=== PATIENT | female | born 1980 | race American Indian/Alaskan Native ===

== ENCOUNTER 2017-03-30 07:12 | Outpatient (CLI) | payer MEDICAID ==
--- NOTE | 2017-03-30 09:58 | Cat Scan Report ---
CT ABDOMEN WITH CONTRAST: HISTORY: Abdominal pain, umbilical pain. COMPARISON: none. TECHNIQUE: Helical CT in 1.25mm intervals following IV contrast. Sagittal and coronal reconstructions. FINDINGS: Lung bases: Normal. Liver: Normal. Biliary system: Normal. Pancreas: Normal. Spleen: Normal. Kidneys/ureters: Normal. Adrenal glands: Normal. Aorta: Normal. Intestines: Normal. Appendix: Not confidently identified. No umbilical hernia is appreciated. IMPRESSION: Unremarkable CT scan of the abdomen with contrast.
== END 2017-03-30 07:13 | disposition home or self-care (01) ==
LOC: CT 07:12
PROVIDERS: ATTEND Obstetrics & Gynecology
DX: R10.33 Periumbilical pain (principal)
CPT/HCPCS: 74160; Q9967

== ENCOUNTER 2021-08-04 05:46 | Observation (INO) | payer MEDICAID, OTHER ==
--- NOTE | 2021-08-01 12:07 | History and Physical Report ---
History of Present Illness Date of examination: 08/01/21 History of present illness: Patient has been reassessed/reevaluated. H&P has been reviewed. No interval changes. This is a 40 years old female who with complains of menorrhagia, dysmenorrhea, abnormal periods, dyspareunia and pelvic pain, but denies abnormal vaginal discharge, vaginal burning/irritation, vaginal itching, breast mass or lumps, depression, anxiety, urinary symptoms, chest pain, palpitations, shortness of breath, leg swelling, back pain, abdominal pain, headaches and bowel problems. The patient notes that she is sexually active and does not use contraception. The patient reports that she has cycles q 28-30 days. The patient's menstrual disorder symptoms began >1 year ago. She complains of heavy bleeding, dysmenorrhea, history of fibroids and cramping, but denies irregular menses, mid-cycle spotting, lack of menses, clotting, history of ovarian cysts, history of thyroid disease, history of PCOS, history of bleeding disorder, lightheadedness and fatigue. Interval between menses is 28 days and 30 days. Menstrual flow lasts 4 days and 7 days. Patient reports that for pain she uses ibuprofen. Patient's work up has included a CT scan and a transvaginal ultrasound which revealed multiple myomas largest ~4cm in diameter. Patient's symptoms when present disrupts her normal daily activities Patient desires definitive treatment ] Vital Signs: Patient Profile: 40 Years Old Female LMP: 07/06/2021 Height: 65 inches Weight: 175 pounds BMI: 29.12 Temp: 97.9 degrees F BP sittin / 70 (left arm) Menstrual History: LMP (date): 07/06/2021 Past History : 2 Term Births: 2 Premature Births: 0 Living Children: 2 Para: 2 Mult. Births: 0 Prev : 0 Aborta: 0 Elect. Ab: 0 Spont. Ab: 0 Ectopics: 0 # 1 Delivery date: Weeks Gestation: 40 Delivery type: vaginal Anesthesia type: epidural [facility] Sex: female weight: 7.31 Comments: none # 2 Delivery date: 02/17/2008 Weeks Gestation: 39 labor: no Delivery type: Anesthesia type: epidural Delivery location: [facility] Sex: Female weight: 7.88 Current Allergies (reviewed today): No known allergies Past Medical History: Hypertension Fibroids Past Surgical History: Left Bunionectomy Bilateral axillary breast tissue removal Family History Summary: Other Family Member - Has Family History of Lung Cancer - Entered On: 05/30/2021 Other Family Member - Has Family History of Hypertension - Entered On: 05/30/2021 Other Family Member - Has Family History of Diabetes - Entered On: 05/30/2021 General Comments - FH: Family History Breast Cancer--first cousin No Family History of Colon Cancer No Family History of Ovarvian Cancer Social History: Patient is Marital Status: Children: 2 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 of genital herpes: no Hx of STD: None Review of Systems General Complains of fatigue. Denies fever, chills, sweats, anorexia, weakness, malaise, weight loss and sleep disorder. Complains of menorrhagia, pelvic pain, painful periods and painful sex. Denies vaginal discharge, incontinence, dysuria, hematuria, urinary frequency, amenorrhea, abnormal vaginal bleeding, genital sores, decreased libido, urinary urgency, hot flashes, vaginal dryness, vaginal itching and vaginal odor. CV Denies chest pains, palpitations, syncope, dyspnea on exertion, orthopnea, PND and peripheral edema. Resp Denies cough, dyspnea at rest, excessive sputum, hemoptysis, wheezing and pleurisy. GI Denies nausea, vomiting, diarrhea, constipation, change in bowel habits, abdominal pain, melena, hematochezia, jaundice, gas/bloating, indigestion/heartburn, dysphagia and odynophagia. Breast Denies left breast lump, right breast lump, nipple discharge, bloody discharge from nipple, breast pain, abnormal mammogram and breast enlargement. Psych Denies depression, anxiety, irritability and mood swings. Past History Past Medical History: hypertension, other (SEE HPI FOR DETAILS) Past Surgical History: Other (SEE HPI FOR DETAILS) Social history: full code, other (SEE HPI FOR DETAILS) Family history: other (SEE HPI FOR DETAILS) Medications and Allergies Allergies Allergy/AdvReac Type Severity Reaction Status Date / Time No Known Allergies Allergy Unverified 07/28/21 16:21 Home Medications Medication Instructions Recorded Confirmed Last Taken Type Amlodipine Besylate [Norvasc] 5 mg PO DAILY 07/28/21 07/28/21 Unknown History Active Meds: Active Medications Amlodipine Besylate (Amlodipine 5 Mg Tab) 5 mg PO DAILY SABINA Cefazolin Sodium (Ancef/Sterile Water 2 Gm/20 Ml) 2 gm in 20 mls @ 80 mls/hr IV PREOP NR; Protocol Stop: 08/04/21 20:00 Review of Systems Constitutional: other (SEE HPI FOR DETAILS) Exam - Physical Exam Narrative exam: HEENT: normocephalic, no lesions or deformities Skin warm dry no rashes Chest: respiratory effort normal, clear to auscultation CV: regular, normal S1-S2, no murmur, no rub, no gallop Abdomen: Obese, Tender in suprapubic area, soft, Neuro: no gross anomalities Extremities: normal alignment, no joint enlargement, crepitus, masses or tenderness; normal tone and strength 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 No evidence of cystocele or rectocele. Cervix: normal appearance, no lesions, no discharge, no cmt Uterus: enlarged palpated at umbilicus Tender to palpation Adnexae: Unable to palpate due to uterine size Rectovaginal: exam defered Results - Labs CBC & Chem 7: 08/01/21 12:20 08/01/21 12:20 Assessment and Plan - Patient Problems (1) Intramural leiomyoma of uterus Current Visit: No Status: Acute Plan to address problem: Diagnosis explained to patient . Questions answered. Discussed with patient various medical, surgical and radiological therapies common for treatment including expectant management, myomectomy hysterectomy and uterine artery embolization Patient desires definitive treatment Patient desires hysterectomy Discussed risks and benefits of laparotomy, laparoscopy, vaginal and robotic assisted approaches for hysterectomies Patient desires robotic assisted total hysterectomy. Consent reviewed and signed . The risks and alternatives for this surgery were reviewed with the patient. Discuss the risks of the surgery including infection, bleeding possibly heavy enough to require a blood transfusion, possible damage to bowel, bladder or ureter. Patient understand that this surgery with make her sterile.Patient understands if her ovaries are removed she will become menopausal. Also if unable to complete robitcally a laparotomy may be required. Patient understands and desires to proceed. (2) Menorrhagia Current Visit: No Status: Acute Qualifiers: Menorrhagia type: with regular cycle Qualified Code(s): N92.0 - Excessive and frequent menstruation with regular cycle Plan to address problem: Probably secondary to # 1 (3) Dysmenorrhea Current Visit: No Status: Acute Plan to address problem: Probably secondary to # 1 (4) Chronic pelvic pain in female Current Visit: No Status: Acute Plan to address problem: Probably secondary to # 1
[2021-08-01 12:27] LABS: Basophils % (Auto) 0.3 % (0.0-1.8); Eosinophils # (Auto) 0.2 K/mm3 (0.0-0.4); Eosinophils % (Auto) 2.3 % (0.0-4.3); Hematocrit 36.7 % (30.3-42.9); Hemoglobin 11.9 gm/dl (10.1-14.3); Lymphocytes # (Auto) 3.3 K/mm3 (1.2-5.4); Lymphocytes % (Auto) 45.3 % (13.4-35.0); Mean Corpuscular HGB Conc 32 % (30-34); Mean Corpuscular Volume 84 fl (79-97); Monocytes # (Auto) 0.4 K/mm3 (0.0-0.8); Monocytes % (Auto) 5.5 % (0.0-7.3); Platelet Count 340 K/mm3 (140-440); Red Cell Distribution Width 13.7 % (13.2-15.2)
[2021-08-01 12:39] LABS: BUN/Creatinine Ratio 11; Blood Urea Nitrogen 10 mg/dL (7-17); Calcium 9.2 mg/dL (8.4-10.2); Hemolysis Index 2
--- NOTE | 2021-08-02 11:35 | Anesthesia Consultation ---
Anesthesia Consult and Med Hx Date of service: 08/04/21 - Airway Anesthetic Teeth Evaluation: Crowns ROM Head & Neck: Adequate Mental/Hyoid Distance: Adequate Mallampati Class: Class III Intubation Access Assessment: Probably Good - Pre-Operative Health Status ASA Pre-Surgery Classification: ASA2 Proposed Anesthetic Plan: General Nerve Block: TAP - Pulmonary Hx Smoking: No Hx Respiratory Symptoms: No (+2FS) Hx Sleep Apnea: No - Cardiovascular System Hx Hypertension: Yes - Central Nervous System Hx Psychiatric Problems: No - Gastrointestinal Hx Gastroesophageal Reflux Disease: No - Hematic Hx Sickle Cell Disease: No - Other Systems Hx Alcohol Use: Yes (Occas) Hx Cancer: No Hx Obesity: No
[2021-08-04] MEDS ORDERED: ACETAMINOPHEN 500 MG TAB PO ONE (06:00)
[2021-08-04] MEDS ORDERED: MIDAZOLAM 2 MG/2 ML INJ IV NR (06:00)
[2021-08-04] MEDS ORDERED: CELECOXIB 200 MG CAP PO NR (06:00)
[2021-08-04] MEDS ORDERED: fentaNYL 100 MCG/2 ML INJ IV ONE (06:00)
[2021-08-04] MEDS ORDERED: LACTATED RINGERS 1,000 ML IV SCH (06:00)
[2021-08-04] MEDS ORDERED: MAGNESIUM OXIDE 400 MG TAB PO ONE (06:00)
[2021-08-04] MEDS ORDERED: ceFAZolin/Water 2 GM/20 ML 2 GM/20 ML SYRINGE IV NR (07:00)
[2021-08-04] MEDS ORDERED: propofoL 200 MG/20 ML VIAL IV ONE (07:12)
[2021-08-04] MEDS ORDERED: LIDOCAINE MPF (2%) 20 MG/1 ML VIAL 5 ML ONE (07:12)
[2021-08-04] MEDS ORDERED: HYDROmorphone 1 MG/1 ML INJ ONE (07:12)
[2021-08-04] MEDS ORDERED: NEOMY 40 MG/POLYMYXIN B 200,000 UNITS/ML (GU) AMPULE IR ONE ×2 (07:14→10:32)
[2021-08-04] MEDS ORDERED: ROCURONIUM 50 MG/5 ML INJ IV ONE (07:15)
[2021-08-04] MEDS ORDERED: BUPIVACAINE/PF (0.25%) 2.5 MG/ML 30 ML VIAL INFILTRATI ONE (07:22)
[2021-08-04] MEDS ORDERED: dexAMETHasone 4 MG/ML VIAL ONE (07:23)
[2021-08-04] MEDS ORDERED: METHYLENE BLUE 50 MG/10 ML AMP ONE (08:59)
--- NOTE | 2021-08-04 09:19 | Anesthesia Day of Surgery ---
Anesthesia Day of Surgery - Day of Surgery Patient Examined: Yes Patient H&P Reviewed: Yes Patient is NPO: Yes
[2021-08-04] MEDS ORDERED: ONDANSETRON 4 MG/2 ML INJ IV PRN ×2 (09:30→13:02)
[2021-08-04] MEDS ORDERED: HYDROmorphone 0.5 MG/0.5 ML INJ IV PRN ×2 (09:30)
[2021-08-04] MEDS ORDERED: SUGAMMADEX SODIUM 200 MG/2 ML VIAL IV ONE (10:20)
[2021-08-04] MEDS ORDERED: SODIUM CHLORIDE 0.9% IRR 1,500 ML BOTTLE IR ONE (10:33)
--- NOTE | 2021-08-04 11:36 | Operative Report ---
Operative Report Operative Report: Date of procedure: August 04, 2021 Pre-operative diagnosis: Symptomatic leiomyomata with menorrhalgia, dysmenorrhea and chronic pelvic pain Post-operative diagnosis: Same plus endometriosis and pelvic adhesive disease Procedure name(s):Robotic Assisted Total Hysterectomy with bilateral salpingectomy with extensive lysis of adhesions Surgeon: Galen Lopez MD Plant Control Operator: Olivia Ferrer, certified fraud examiner Anesthesia: General EBL: 150 cc Complications: None Findings: Patient with a uterus approximately 14 to 16 weeks in size but did have: Adhesions to the left adnexa and chocolate fluid consistent with endometriosis along with those adhesions bilaterally ovaries were slightly enlarged. The left ovary had adhesions to the pelvic sidewall and the posterior cul-de-sac the right ovary also had adhesions to the posterior cul-de-sac and posterior uterus. Large uterus with multiple leiomyomata also adhesions consistent with endometriosis in the posterior cul-de-sac Specimen(s): Uterus with cervix and bilateral fallopian tubes Procedure: Patient was brought to the operating room where general anesthesia was induced without difficulty. Patient was placed in the dorsal lithotomy position. Prepped and draped in the usual sterile manner for robotic procedure. Briggs catheter was placed without difficulty. Speculum was placed in the vagina. A medium V-Care Uterine manipulator was placed without difficulty. Attention was now switched to the patient's abdomen. A vertical supra-umbilicus incision was made with a scalpel. A 10-12 trocar was placed in this incision under direct visualization. Intra-abdominal placement was verified with no evidence of internal organ damage. The patient was insufflated approximately 3-1/2 L of CO2 gas. She was placed in Trendelenburg position. The patient pelvic findings were noted as above. It was determined that the patient was a candidate for robotic procedure. On both sides the umbilical incision at about 8 cm, incisions were made for robotic trocars. Each robotic trocar was placed under direct visualization with no evidence of internal organ damage. One 5 mm trocar was placed 2 fingerbreadths above the right iliac crest. A 5 mm camera was placed in the right lower quadrant trocar, the 10-12 trocar was removed and a Jon Greenwood laparoscopic port closure device was placed through this incision under direct visualization with no evidence of internal organ damage. The camera was then replaced into this port. At this time the patient was placed in extreme Trendelenburg. The da Jessica robot was then docked on the patient's left side. The trocars connected to the robot appropriately robotic instruments were placed under direct visualization no evidence of internal organ damage.. At this time I took my place under the robotic operating bennett. Due to the extensive adhesion did give methylene blue IV to evaluate for possible urinary tract injury doing surgery. The adhesions to the colon were bluntly with inflammatory changes being in apparent. Complete separation was done without any sharp dissection with no evidence of damage to the colon. Also the adhesions in the cul-de-sac were bluntly again with no evidence of internal organ damage. Starting on the patient's right side the ureter was identified and found to be out of the operative field. Using the robotic vessel sealer the mesosalpinx under the fallopian tube were cauterized and cut starting from the distal end. Utero-ovarian complex was then cauterized and cut. This was followed by cauterizing and cutting the right fallopian tube and right round ligament. The broad ligament was then opened. The bladder flap was formed anteriorly. The posterior broad ligament was then excised. The uterine vessels were skeletonized. The ureter was clearly seen out of the operative field. The bladder was pushed away from the anterior uterus. The right uterine vessels were then cauterized and cut. Attention was then switched to the patient's left side. Due to the cul-de-sac adhesion of fallopian tube on left tube started at the uterosacral complex with cautery and cutting vessel sealer also started across the fallopian tube at its cornea with cautery and cutting. Proceeded with cautery and cutting the left round ligament. The broad ligament was then opened. The bladder flap was completed anteriorly. This was followed by isolating the uterine vessels. At this time the uterus was appearing very cyanotic. After inspecting the bladder flap to insured no evidence of bladder injury, the colpotomy was then started. I chose to begin anteriorly due to the inflammatory changes noted posterior cul-de-sac. Incision started at 12:00 until the V-Care could be seen. This incision was extended from 12:00 to 3:00. Then from 12:00 to 9:00. Then from 9:00 to 6:00. This incision was extended f rom 3:00 to 6:00. At this time colpotomy was complete with no evidence of adjacent organ damage. Because of the large size of the uterus I bivalved the uterus in order for her to fit through the colpotomy using the robotic scissors with no evidence damage to adjacent organs patient with known numerous intramural myoma seen. After bivalving the uterus the personalized living assistant could remove the uterus from through the colpotomy site. The vaginal cuff was irrigated and cauterized and found to be hemostatic. The cuff was closed with roboticly using 0 V- Lock suture. This closure was hemostatic after irrigation and Bovie. All pedicles were inspected and found to be hemostatic. The ureters were identified bilaterally and found to be functioning normal. There was no evidence of blue dye present intra-abdominal length. The patient had clear urine in the Briggs catheter with no evidence of mixture with blood. Surgicel powder was placed on the cuff and pedicles for postoperative hemostasis . All instruments were then removed. The large trocar sites were closed in layers 2-0 Vicryl and 4-0 Monocryl. The smaller incisions were closed subcuticularly with 4-0 Monocryl. Dermabond was placed over the skin incisions. After an draping the patient really did notice small blood clots in the Briggs catheter tubing but the urine itself was yellow. We will continue monitoring with Briggs catheter postoperatively. The patient tolerated procedure well. She was awakened in the operating room and accompanied to the recovery room in good condition.
[2021-08-04] MEDS ORDERED: D5W/LACTATED RINGERS 1,000 ML IV SCH (13:02)
[2021-08-04] MEDS ORDERED: MAGNESIUM HYDROXIDE (MOM) ORAL LIQD UDC PO PRN (13:02)
[2021-08-04] MEDS ORDERED: oxyCODONE /ACETAMINOPHEN 5-325MG TAB PO PRN (13:02)
[2021-08-04] MEDS ORDERED: ACETAMINOPHEN 325 MG TAB PO PRN (13:02)
--- NOTE | 2021-08-04 13:44 | Event Note ---
Date: 08/04/21 Day of surgery. Discuss operative findings with patient and questions answered. Patient without fever. Will ambulate in halls this evening. Patient's urine output is clear now with no evidence of hematuria. I removed her Briggs catheter. We will check postoperative H&H. We will continue routine postoperative care and reassess for adequate see for discharge.
[2021-08-04] MEDS ORDERED: ceFAZolin/NS 1 GM/50 ML 1 GM/50 ML BAG IV SCH (14:00)
[2021-08-04 14:29] LABS: Hematocrit 35.4 % (30.3-42.9); Hemoglobin 11.5 gm/dl (10.1-14.3)
--- NOTE | 2021-08-04 16:31 | Post Anesthesia Evaluation ---
- Post Anesthesia Evaluation Patient Participated: Yes Airway Patent: Yes Stable Respiratory Function: Yes Nausea/Vomiting: No Temp > 96.8F: Yes Pain Manageable: Yes Adequeate Hydration: Yes Anesthesia Complications: No Block Receding Appropriately: Yes Patient on Ventilator: No
[2021-08-04] MEDS ORDERED: KETOROLAC 30 MG/1 ML INJ IV SCH (18:00)
--- NOTE | 2021-08-04 18:28 | Short Stay Summary ---
Short Stay Documentation Date of service: 08/04/21 - History Principal diagnosis: Symptomatic leiomyomata with menorrhalgia dysmenorrhea also chronic pelvic H&P: dictated Past Medical History: hypertension, other (SEE HPI FOR DETAILS) Past Surgical History: Other (SEE HPI FOR DETAILS) Social history: full code, other (SEE HPI FOR DETAILS) - Allergies and Medications Current Medications: Allergies No Known Allergies Allergy (Unverified 07/28/21 16:21) Home Medications Medication Instructions Recorded Confirmed Last Taken Type Amlodipine Besylate [Norvasc] 5 mg PO DAILY 07/28/21 08/04/21 08/04/21 05:00 History Active Medications Acetaminophen (Acetaminophen 325 Mg Tab) 650 mg PO Q4H PRN PRN Reason: Pain MILD(1-3)/Fever >100.5/GILLIAM Last Admin: 08/04/21 15:21 Dose: 650 mg Amlodipine Besylate (Amlodipine 5 Mg Tab) 5 mg PO DAILY SABINA Docusate Sodium (Docusate Sodium 100 Mg Cap) 100 mg PO BID SABINA Dextrose/Lactated Ringer's (D5lr) 1,000 mls @ 125 mls/hr IV DIRECT SABINA Cefazolin Sodium (Ancef/Ns 1 Gm/50 Ml) 1 gm in 50 mls @ 100 mls/hr IV Q8H SABINA; Protocol Stop: 08/04/21 22:29 Last Admin: 08/04/21 15:22 Dose: 100 mls/hr Ketorolac Tromethamine (Ketorolac 30 Mg/1 Ml Inj) 30 mg IV Q6H SABINA Stop: 08/05/21 06:00 Last Admin: 08/04/21 18:06 Dose: 30 mg Magnesium Hydroxide (Magnesium Hydroxide (Mom) Oral Liqd Udc) 30 ml PO Q4H PRN PRN Reason: Constipation Ondansetron HCl (Ondansetron 4 Mg/2 Ml Inj) 4 mg IV Q8H PRN PRN Reason: Nausea And Vomiting Oxycodone/Acetaminophen (Oxycodone /Acetaminophen 5-325mg Tab) 2 tab PO Q6H PRN PRN Reason: Pain, Moderate (4-6) - Physical exam General appearance: no acute distress Integumentary: no rash HEENT: Atraumatic Lungs: Normal air movement Breasts: deferred Heart: Regular rate Gastrointestinal: normal, hypoactive bowel sounds, tenderness (Consistent with day of surgery), distended (Consistent with robotic surgery), other (Healing surgical scars without signs of infection) Female Genitourinary: normal Rectal Exam: deferred Extremities: no ischemia, pulses intact Neurological: Normal speech - Brief post op/procedure progress note Date of procedure: 08/04/21 (See operative note for details) Condition: stable - Hospital course Hospital course: Patient was admitted underwent the above him procedure without any complication s. Patient was admitted and underwent above procedure without complications. Her post operative extended recovery observation course was benign she was afebrile throughout. Patient had no orthostatic symptoms. Her postoperative hematocrit and hemoglobin was stable. Patient was tolerating regular diet and voiding without difficulty at time of discharge. Patient incision was healing well without evidence of infection. Patient will be discharged with follow-up in office in 1-2 weeks for postop check - Disposition Condition at discharge: Good Disposition: 01 HOME / SELF CARE / HOMELESS - Discharge Diagnoses (1) Intramural leiomyoma of uterus Status: Acute (2) Menorrhagia Status: Acute Qualifiers: Menorrhagia type: with regular cycle Qualified Code(s): N92.0 - Excessive and frequent menstruation with regular cycle (3) Dysmenorrhea Status: Acute (4) Chronic pelvic pain in female Status: Acute Short Stay Discharge Plan Activity: advance as tolerated Diet: regular Wound: open to air Additional Instructions: Patient instructed no heavy lifting for 4 weeks. No intercourse for 8 weeks. Call office for fever, chills, nausea, vomiting or pain not controlled by pain medications. Ambulation is encouraged. Patient's call for heavy vaginal bleeding. Patient instructed to keep her scheduled post operative office appointment. Follow up with: MYLES SINGLETON MD [Primary Care Provider] - 7 Days
[2021-08-04 19:43] VITALS: BP 127/82
[2021-08-04] MEDS ORDERED: DOCUSATE SODIUM 100 MG CAP PO SCH (22:00)
[2021-08-05] MEDS ORDERED: amLODIPine 5 MG TAB PO SCH (10:00)
== END 2021-08-04 19:30 | disposition home or self-care (01) ==
LOC: OR 05:46 → OB 11:06
PROVIDERS: ADMIT Obstetrics & Gynecology; ATTEND Obstetrics & Gynecology
DX: D25.1 Intramural leiomyoma of uterus (principal); Z20.822 Contact with and (suspected) exposure to COVID-19; N92.0 Excessive and frequent menstruation with regular cycle; N94.6 Dysmenorrhea, unspecified; N73.6 Female pelvic peritoneal adhesions (postinfective); I10 Essential (primary) hypertension; R10.2 Pelvic and perineal pain; N80.9 Endometriosis, unspecified; Z98.890 Other specified postprocedural states; Z90.710 Acquired absence of both cervix and uterus; Z79.899 Other long term (current) drug therapy
CPT/HCPCS: 36415; 58554; 64450; 80048; 84703; 85014; 85018; 85025; 86850; 86900; 86901; 88302; 88307; 96365; 96375; G0378; J0690; J1100; J1170; J1885; J2250; J2704; J3010; J3490; J7120; Q9968; S2900; U0003